=== PATIENT | male | born 1970 | race Caucasian/White ===

== ENCOUNTER 2019-09-05 09:34 | Outpatient (CLI) | payer OTHER | END 2019-09-05 09:45 | disposition home or self-care (01) | LOC: SONOGRAMA 09:34 | DX: E03.8 Other specified hypothyroidism (principal); E11.9 Type 2 diabetes mellitus without complications ==

== ENCOUNTER 2019-09-16 17:40 | Emergency (ER) | payer OTHER ==
[~2019-09-16] VITALS: Ht 180.3 cm; Wt 74.4 kg
[2019-09-16] MEDS ORDERED: WELLBUTRIN SR100 MG (17:55)
[2019-09-16] MEDS ORDERED: CLONAZEPAM1 MG (17:55)
[2019-09-16] MEDS ORDERED: DOXYCYCLINE150 MG (17:56)
== END 2019-09-16 19:04 | disposition home or self-care (01) ==
LOC: ER 17:40
DX: S91.141A Puncture wound with foreign body of right great toe without damage to nail, initial encounter (principal); W46.0XXA Contact with hypodermic needle, initial encounter; Y93.89 Activity, other specified; Y92.832 Beach as the place of occurrence of the external cause; Y99.8 Other external cause status

== ENCOUNTER 2019-10-05 16:23 | Outpatient (CLI) | payer OTHER ==
[~2019-10-05 16:23] MED LIST: CLONAZEPAM1 MG; DOXYCYCLINE150 MG; WELLBUTRIN SR100 MG
== END 2019-10-05 16:29 | disposition home or self-care (01) ==
LOC: RAD 16:23
DX: R22.2 Localized swelling, mass and lump, trunk (principal); Z01.811 Encounter for preprocedural respiratory examination

== ENCOUNTER 2019-10-24 05:43 | Day surgery (SDC) | payer OTHER ==
[2019-10-24] MEDS ORDERED: ULTRACET PO (11:34)
== END 2019-10-24 12:45 | disposition home or self-care (01) ==
LOC: CIR.AMB 05:43
DX: D17.1 Benign lipomatous neoplasm of skin and subcutaneous tissue of trunk (principal); D17.21 Benign lipomatous neoplasm of skin and subcutaneous tissue of right arm; D17.23 Benign lipomatous neoplasm of skin and subcutaneous tissue of right leg; D17.24 Benign lipomatous neoplasm of skin and subcutaneous tissue of left leg

== ENCOUNTER 2020-03-18 08:33 | Outpatient (CLI) | payer OTHER ==
[~2020-03-18 08:33] MED LIST changes: +ULTRACET PO
== END 2020-03-18 08:53 | disposition home or self-care (01) ==
LOC: SONOGRAMA 08:33 → MAMO-SONO 08:45 → SONOGRAMA 08:53
PROVIDERS: ATTEND Urology
DX: N40.0 Benign prostatic hyperplasia without lower urinary tract symptoms (principal)

== ENCOUNTER 2022-01-04 10:56 | Emergency (ER) | payer OTHER ==
[~2022-01-04] VITALS: Ht 180.3 cm; Wt 74.4 kg
[2022-01-04] MEDS ORDERED: DISCOVISC DISP S1 ML IO (11:07)
== END 2022-01-04 14:20 | disposition home or self-care (01) ==
LOC: ER 10:56
DX: U07.1 COVID-19 (principal); Z91.018 Allergy to other foods

== ENCOUNTER 2022-01-05 09:45 | Outpatient (CLI) | payer OTHER ==
[~2022-01-05 09:45] MED LIST changes: +DISCOVISC DISP S1 ML IO
== END 2022-01-05 10:15 | disposition home or self-care (01) ==
LOC: ASH CLINIC 09:45
PROVIDERS: ATTEND General Practice
DX: U07.1 COVID-19 (principal)

== ENCOUNTER 2023-06-01 13:07 | Outpatient (CLI) | payer OTHER | END 2023-06-01 13:12 | disposition home or self-care (01) | LOC: RAD 13:07 | PROVIDERS: ATTEND Internal Medicine Cardiovascular Disease | DX: M51.36 Other intervertebral disc degeneration, lumbar region (principal); Z91.018 Allergy to other foods ==

== ENCOUNTER 2024-02-07 04:32 | Emergency (ER) | payer OTHER ==
[~2024-02-07] VITALS: Ht 180.3 cm; Wt 77.1 kg
[2024-02-07] MEDS ORDERED: METOCLOPRAMIDE HCL 5 MG/5 ML ML PO STA (05:47)
[2024-02-07] MEDS ORDERED: KETOROLAC TROMETHAMINE 60 MG VIAL IM STA (05:47)
[2024-02-07 06:47] LABS: HEMATOCRIT 34.9 % (39.0-48.0); HEMOGLOBIN 11.9 g/dL (13-16.00); MEAN CELL VOLUME 88.9 fL (80.0-100.00); MEAN CORPUSCULAR HEMOGLOBIN 30.3 pg (27.00-32.0); MEAN CORPUSCULAR HGB CONC 34.1 g/dl (32.0-36.0); PLATELET COUNT 109 K/uL (150-450); RED BLOOD COUNT 3.92 M/uL (4.00-6.00)
== END 2024-02-07 07:19 | disposition home or self-care (01) ==
LOC: ER 04:32
DX: B34.9 Viral infection, unspecified (principal); Z20.822 Contact with and (suspected) exposure to COVID-19; Z91.018 Allergy to other foods

== ENCOUNTER 2024-02-10 19:09 | Inpatient (IN) | payer OTHER ==
[~2024-02-10] VITALS: Ht 180.3 cm; Wt 78.9 kg
[2024-02-10] MEDS ORDERED: 0.9 % SODIUM CHLORIDE 1,000 ML IV SCH (20:00)
[2024-02-10] MEDS ORDERED: LOPERAMIDE HCL 2 MG CAPSULE PO SCH (20:14)
[2024-02-10] MEDS ORDERED: HYOSCYAMINE SULFATE 0.125 MG TAB.SUBL SL PRN (20:15)
[2024-02-10] MEDS ORDERED: DIPHENHYDRAMINE HCL 25 MG CAPSULE PO ONE (20:15)
[2024-02-10] MEDS ORDERED: METHYLPREDNISOLONE SOD SUCC 40 MG VIAL IV ONE (20:30)
[2024-02-10] MEDS ORDERED: ONDANSETRON HCL 2 MG/ML VIAL IV PRN (20:30)
[2024-02-10] MEDS ORDERED: ACETAMINOPHEN 500 MG GEL..CAP PO PRN (20:30)
[2024-02-10] MEDS ORDERED: DIPHENHYDRAMINE HCL 50 MG/ML VIAL 1ML IV ONE (20:30)
[2024-02-10 21:11] LABS: HEMATOCRIT 39.1 % (39.0-48.0); HEMOGLOBIN 13.2 g/dL (13-16.00); MEAN CELL VOLUME 88.9 fL (80.0-100.00); MEAN CORPUSCULAR HGB CONC 33.7 g/dl (32.0-36.0); RED CELL DISTRIBUTION WIDTH 13.8 % (11.5-14.5)
[2024-02-10 21:28] LABS: INR 0.95; PARTIAL THROMBOPLASTIN TIME 33.2 SECONDS (22.0-34.0)
[2024-02-10 21:39] LABS: PLATELET ESTIMATE DECREASED (NORMAL)
[2024-02-10 21:44] LABS: PLATELET COUNT 20 K/uL (150-450); PLT IN CITRATE 19 K/uL (150-450)
[2024-02-10] MEDS ORDERED: Pramoxine HCl 15 GM FOAM RECTAL SCH (22:33)
[2024-02-11 07:09] LABS: URINE APPEARANCE Clear; URINE BILIRRUBIN Negative (NEGATIVE); URINE BLOOD Moderate; URINE COLOR Dark Yellow; URINE GLUCOSE Negative (NEGATIVE); URINE LEUKOCYTE Negative; URINE NITRATE Negative; URINE UROBILINOGEN 0.2 E.U./dl
[2024-02-11 07:13] LABS: URINE BACTERIA 16.3 uL (0.0-1933); URINE EPITHELIAL CELLS 5.7 uL (0.0-38.8); URINE RBC 50.5 uL (0.0-20.8)
[2024-02-11 07:26] LABS: URINE PROTEIN 300 (NEGATIVE)
[2024-02-11 08:05] LABS: ALBUMIN 2.7 gm/dL (3.4-5.0); BILIRUBIN TOTAL 0.78 mg/dL (0.3-1.2); CALCIUM 7.2 mg/dL (8.5-10.1); CREATININE SERUM 0.69 mg/dL (0.70-1.30); GFR 119.94; GLOBULINA 3.1 G/DL (2.4-3.5); POTASSIUM 3.36 mEq/L (3.5-5.1); TOTAL PROTEIN 5.8 gm/dL (6.4-8.2)
[2024-02-11] MEDS ORDERED: LOPERAMIDE HCL 2 MG CAPSULE PO STA (08:07)
[2024-02-11 08:43] LABS: HEMATOCRIT 36.4 % (39.0-48.0); HEMOGLOBIN 12.8 g/dL (13-16.00); MEAN CELL VOLUME 87.8 fL (80.0-100.00); MEAN CORPUSCULAR HEMOGLOBIN 30.8 pg (27.00-32.0); MEAN CORPUSCULAR HGB CONC 35.1 g/dl (32.0-36.0); RED BLOOD COUNT 4.14 M/uL (4.00-6.00); RED CELL DISTRIBUTION WIDTH 13.5 % (11.5-14.5)
[2024-02-11] MEDS ORDERED: PANTOPRAZOLE SODIUM 40 MG/VIAL VIAL IV SCH (09:00)
[2024-02-11] MEDS ORDERED: MULTIVIT INFUSN,ADULT 4,VIT K 10 ML VIAL IV SCH (09:00)
[2024-02-11 10:41] LABS: PLATELET COUNT 14 K/uL (150-450)
[2024-02-11] MEDS ORDERED: LACTOBACILLUS ACIDOPHILUS 1 CAP CAP PO SCH (17:04)
[2024-02-11] MEDS ORDERED: LOPERAMIDE HCL 2 MG CAPSULE PO PRN (17:07)
[2024-02-11] MEDS ORDERED: POTASSIUM CHLORIDE IN WATER 40 MEQ/100 ML PIGGYBAG IV ONE (17:15)
[2024-02-11] MEDS ORDERED: METHYLPREDNISOLONE SOD SUCC 40 MG VIAL IV SCH ×2 (21:00)
[2024-02-12 07:11] LABS: HEMOGLOBIN 12.7 g/dL (13-16.00); MEAN CELL VOLUME 87.9 fL (80.0-100.00); MEAN CORPUSCULAR HEMOGLOBIN 30.2 pg (27.00-32.0); MEAN CORPUSCULAR HGB CONC 34.3 g/dl (32.0-36.0); RED CELL DISTRIBUTION WIDTH 14.1 % (11.5-14.5)
[2024-02-12 08:31] LABS: PLATELET COUNT 34 K/uL (150-450)
[2024-02-12] MEDS ORDERED: HYOSCYAMINE SULFATE 0.125 MG TAB.SUBL SL STA (16:06)
[2024-02-12] MEDS ORDERED: POTASSIUM CHLORIDE IN WATER 100 ML IV NR (16:15)
[2024-02-12] MEDS ORDERED: HYOSCYAMINE SULFATE 0.125 MG TAB.SUBL SL SCH (17:00)
[2024-02-12] MEDS ORDERED: METHYLPREDNISOLONE SOD SUCC 40 MG VIAL IV SCH (17:00)
[2024-02-13 06:26] LABS: PLT IN CITRATE 75 K/uL (150-450)
[2024-02-13 06:30] LABS: HEMATOCRIT 36.8 % (39.0-48.0); HEMOGLOBIN 12.7 g/dL (13-16.00); MEAN CELL VOLUME 86.1 fL (80.0-100.00); MEAN CORPUSCULAR HEMOGLOBIN 29.8 pg (27.00-32.0); MEAN CORPUSCULAR HGB CONC 34.6 g/dl (32.0-36.0); RED BLOOD COUNT 4.27 M/uL (4.00-6.00); RED CELL DISTRIBUTION WIDTH 14.3 % (11.5-14.5)
[2024-02-13 06:32] LABS: PLATELET COUNT 75 K/uL (150-450)
[2024-02-13 07:05] LABS: CALCIUM 7.4 mg/dL (8.5-10.1); CREATININE SERUM 0.78 mg/dL (0.70-1.30); GFR 104.12; POTASSIUM 3.67 mEq/L (3.5-5.1)
[2024-02-13] MEDS ORDERED: Cyanocobalamin/Mecobalamin 1 TAB.SL SL SCH (10:12)
[2024-02-13] MEDS ORDERED: VITAMIN B COMPLEX 1 EACH PO SCH (10:12)
[2024-02-13] MEDS ORDERED: METHYLPREDNISOLONE SOD SUCC 40 MG VIAL IV SCH (17:00)
[2024-02-13] MEDS ORDERED: LOPERAMIDE HCL 2 MG CAPSULE PO STA (18:46)
[2024-02-13] MEDS ORDERED: LOPERAMIDE HCL 2 MG CAPSULE PO PRN (19:00)
[2024-02-13] MEDS ORDERED: SIMETHICONE 125 MG CAPSULE PO STA (19:27)
[2024-02-14 05:11] LABS: HEMATOCRIT 38.8 % (39.0-48.0); HEMOGLOBIN 13.3 g/dL (13-16.00); MEAN CORPUSCULAR HEMOGLOBIN 30.2 pg (27.00-32.0); MEAN CORPUSCULAR HGB CONC 34.3 g/dl (32.0-36.0); RED BLOOD COUNT 4.41 M/uL (4.00-6.00); RED CELL DISTRIBUTION WIDTH 14.1 % (11.5-14.5)
[2024-02-14 05:12] LABS: PLATELET COUNT 110 K/uL (150-450); PLATELET COUNT 98 K/uL (150-450)
[2024-02-14 05:17] LABS: PLT IN CITRATE 99 K/uL (150-450)
[2024-02-14 05:39] LABS: ALBUMIN 2.4 gm/dL (3.4-5.0); BILIRUBIN TOTAL 0.88 mg/dL (0.3-1.2); CALCIUM 7.2 mg/dL (8.5-10.1); CREATININE SERUM 0.76 mg/dL (0.70-1.30); GFR 107.29; GLOBULINA 3.7 G/DL (2.4-3.5); POTASSIUM 3.63 mEq/L (3.5-5.1); TOTAL PROTEIN 6.1 gm/dL (6.4-8.2)
[2024-02-14] MEDS ORDERED: SIMETHICONE 125 MG CAPSULE PO SCH (09:00)
[2024-02-14] MEDS ORDERED: SIMETHICONE125 M1 PO (16:21)
[2024-02-14] MEDS ORDERED: HYOSCYAMINE0.125 M1 SL (16:22)
[2024-02-14] MEDS ORDERED: Proctofoam RECTAL (16:22)
[2024-02-14] MEDS ORDERED: LOPERAMIDE2 MG PO (16:23)
[2024-02-14] MEDS ORDERED: INTESTINEX680 M1 PO (16:23)
[2024-02-14] MEDS ORDERED: Neurin-Sl Tablet Sl SL (16:24)
[2024-02-14] MEDS ORDERED: B Complex PO (16:24)
[2024-02-17 06:27] LABS: Glycopro NEGATIVE; HL NEGATIVE; lb NEGATIVE; llb POSITIVE
== END 2024-02-14 17:00 | disposition home or self-care (01) | DRG 866 ==
LOC: MEDI 19:09
PROVIDERS: Internal Medicine Hematology & Oncology; ADMIT Internal Medicine Cardiovascular Disease; ATTEND Internal Medicine Cardiovascular Disease
PROC: 30233R1 Transfusion of Nonautologous Platelets into Peripheral Vein, Percutaneous Approach (ICD-10-PCS; principal; 2024-02-11)
DX: A90 Dengue fever [classical dengue] (principal); K62.5 Hemorrhage of anus and rectum; E86.0 Dehydration; D69.6 Thrombocytopenia, unspecified; K64.8 Other hemorrhoids
CPT/HCPCS: 240

== ENCOUNTER 2024-04-05 17:08 | Outpatient (CLI) | payer OTHER ==
[~2024-04-05 17:08] MED LIST changes: +B Complex PO; +HYOSCYAMINE0.125 M1 SL; +INTESTINEX680 M1 PO; +LOPERAMIDE2 MG PO; +Neurin-Sl Tablet Sl SL; +Proctofoam RECTAL; +SIMETHICONE125 M1 PO
== END 2024-04-05 17:15 | disposition home or self-care (01) ==
LOC: RAD 17:08 → LAB 17:08 → RAD 17:15
PROVIDERS: ATTEND Internal Medicine Cardiovascular Disease
DX: K62.5 Hemorrhage of anus and rectum (principal); K62.89 Other specified diseases of anus and rectum; A63.0 Anogenital (venereal) warts; D01.3 Carcinoma in situ of anus and anal canal; D12.9 Benign neoplasm of anus and anal canal; K64.1 Second degree hemorrhoids

== ENCOUNTER 2024-04-20 05:33 | Day surgery (SDC) | payer OTHER ==
[2024-04-20] MEDS ORDERED: LIDOCAINE HCL 1%/EPINEPHRINE 20ML VIAL IJ ONE (07:45)
[2024-04-20] MEDS ORDERED: BUPIVACAINE HCL/MPF 0.5% 30ML VIAL ONE (07:45)
[2024-04-20] MEDS ORDERED: HEMOSTATIC MATRIX 1 KIT KIT TOP ONE (07:45)
[2024-04-20] MEDS ORDERED: METRONIDAZOLE/SODIUM CHLORIDE 500 MG/100 ML PIGGYBACK IV ONE (07:45)
[2024-04-20] MEDS ORDERED: CEFTRIAXONE SODIUM 2,000 MG VIAL ONE (07:45)
[2024-04-20] MEDS ORDERED: POVIDONE-IODINE 118 ML BOTT TOP ONE (07:45)
[2024-04-20] MEDS ORDERED: DIBUCAINE 30 GM TUBE ONE (07:45)
[2024-04-20] MEDS ORDERED: TRAM1TAB98 PO (08:20)
[2024-04-20] MEDS ORDERED: COLACE100 MG PO (08:20)
[2024-04-20] MEDS ORDERED: NEURONTIN300 MG PO (08:20)
[2024-04-20] MEDS ORDERED: MORPHINE SULFATE 4 MG/ML VIAL IV ONE (11:40)
== END 2024-04-20 13:15 | disposition home or self-care (01) ==
LOC: CIR.AMB 05:33
PROVIDERS: ATTEND Surgery
DX: D12.9 Benign neoplasm of anus and anal canal (principal); K62.89 Other specified diseases of anus and rectum; A63.0 Anogenital (venereal) warts

== ENCOUNTER 2025-01-09 09:50 | Outpatient (CLI) | payer OTHER ==
[~2025-01-09 09:50] MED LIST changes: +COLACE100 MG PO; +NEURONTIN300 MG PO; +TRAM1TAB98 PO
== END 2025-01-09 09:55 | disposition home or self-care (01) ==
LOC: SONOGRAMA 09:50
PROVIDERS: ATTEND Internal Medicine Cardiovascular Disease
DX: E04.8 Other specified nontoxic goiter (principal)